=== PATIENT | male | born 1955 | race Hispanic/Latino ===

== ENCOUNTER 2016-05-28 05:53 | Day surgery (SDC) | payer BC ==
--- NOTE | 2016-05-27 14:05 | Short Stay Summary ---
Short Stay Documentation Date of service: 05/28/16 Narrative H&P: Patient has been reassessed/reevaluated/re-examined. H&P has been reviewed. 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 Hypothyroid.) Past Surgical History: Other (nasal polypectomy) Social history: - Allergies and Medications Current Medications: Allergies No Known Allergies Allergy (Unverified 05/20/16 14:57) Home Medications Medication Instructions Recorded Confirmed Last Taken Type Levothyroxine Sodium [Synthroid] 150 mcg PO DAILY 05/20/16 05/20/16 Unknown History - Physical exam General appearance: well-nourished Integumentary: no rash HEENT: Other (nasal polyps visible in both nares. Posterior septal deflection to the right) Lungs: Clear to auscultation Breasts: deferred Heart: Regular rate, No murmurs Gastrointestinal: normoactive bowel sounds Male Genitourinary: deferred Rectal Exam: deferred Extremities: no ischemia, pulses intact, No edema Neurological: Normal gait, Normal speech, Sensation intact - Brief post op/procedure progress note Date of procedure: 05/28/16 Pre-op diagnosis: CRS W/ polyps Post-op diagnosis: same Procedure: Bilateral endoscopic sinus surgery. Septoplasty. Under satisfactory general anesthesia with the face having been prepped and draped in a sterile fashion intranasal examination was performed. Both nares were occluded by multiple, pale, glistening, turgid polyps. In addition the nasal septum was deviated in its mid position to the right and touched the right middle meatus and inferior meatus. Decongestion and vasoconstriction was carried out in the following manner. Alternately one nostril was packed with a Webril strip saturated with Afrin solution. On the opposite side 2% Xylocaine 1-60,000 adrenaline was injected. The injections were placed on the septal jolly beneath the mucoperichondrial and mucoperiosteum and on the lateral nasal jolly just caudal to the insertion of the middle turbinate, the lateral aspect of the middle turbinate, and the superior aspect of the inferior turbinate. A total of 4 mL was utilized. A full 5 minutes was allowed to elapse prior to surgery. Using the 0 endoscope the left nare was visualized initially and the Medtronic microdebrider was used to resect the polyps in the left nostril which filled the nostril and projected into the middle meatus. The polyps were quite voluminous in amount. A similar procedure was carried out on the right side. In order to gain better visualization the right septal deflection was resected in the following manner. An incision through the mucoperichondrium was performed caudal to the major site of deflection. A [place] elevator was used to elevate the mucoperichondrial and mucoperiosteum from the site of the septal deflection. The bony and cartilaginous spurs were then resected with straight Tony forceps and [place] forceps. These maneuvers achieved straightening of the cartilage. Again using the Medtronic microdebrider the polyps in the right middle meatus were then tracked into the anterior ethmoid and posterior ethmoid labyrinths. The polyps were massive in amount. An antrum punch was used to resect the agger nasi cells and additional polyps were removed from this site. An identical procedure with identical findings was carried out on the left side. The nasofrontal areas thankfully were free of polyps. Alternately each nostril was inspected using the 0 and 30 nasal endoscopes and additional polyps were resected using the microdebrider. Polyps in the anterior ethmoid labyrinths bilaterally were removed with suction Alex- [place]akes[place] forceps. Ultimately a satisfactory exenteration was carried out. Bleeding was brisk throughout the procedure. Estimated blood loss was 300 mL. The operation was then concluded. Intranasal dressings of Adaptic gauze impregnated with bacitracin solution were placed in both nostrils. An external tape splint was applied. The patient was taken to the recovery room having tolerated the procedure well. Postoperatively he had vision in both eyes. Anesthesia: GETA Findings: Multiple allergic polyps Surgeon: YESSY CORDERO Estimated blood loss: other (300 mL) Pathology: list (nasal polyps. Cartilage and bony spurs) Specimen disposition: to lab Condition: stable - Hospital course Hospital course: Vital signs stable and normal. Vision both eyes. No bleeding.1025. 05/28/16 - Disposition Condition at discharge: Good
--- NOTE | 2016-05-28 06:53 | Anesthesia Consultation ---
Anesthesia Consult and Med Hx Date of service: 05/28/16 - Airway Anesthetic Teeth Evaluation: Good ROM Head & Neck: Adequate Mental/Hyoid Distance: Adequate Mallampati Class: Class II Intubation Access Assessment: Probably Good - Pulmonary Exam CTA: Yes - Cardiac Exam Cardiac Exam: RRR - Pre-Operative Health Status ASA Pre-Surgery Classification: ASA2 Proposed Anesthetic Plan: General - Pulmonary Hx Smoking: Yes (past hx) - Central Nervous System Hx Psychiatric Problems: No - Endocrine Hx Hypothyroidism: Yes (synthroid) - Other Systems Hx Alcohol Use: Yes (occas) Hx Cancer: Yes (Parotid CA 1994- Surgery and radiation)
--- NOTE | 2016-05-28 06:53 | Anesthesia Day of Surgery ---
Anesthesia Day of Surgery - Day of Surgery Patient Examined: Yes Patient H&P Reviewed: Yes Patient is NPO: Yes
[2016-05-28] MEDS ORDERED: NORCO 5/325 PO PRN (06:54)
[2016-05-28] MEDS ORDERED: ZOFRAN IV PRN (06:54)
[2016-05-28] MEDS ORDERED: PEPCID PO NR (07:00)
[2016-05-28] MEDS ORDERED: NACL 0.9% 1000 ML 1,000 ML IV SCH (07:00)
[2016-05-28] MEDS: VERSED IV NR ×2 (07:17→08:00)
[2016-05-28] MEDS ORDERED: XYLOCAINE MPF 2% ONE (07:20)
[2016-05-28] MEDS ORDERED: SUBLIMAZE ONE (07:20)
[2016-05-28] MEDS ORDERED: DIPRIVAN 10 MG/ML IV ONE (07:20)
[2016-05-28] MEDS ORDERED: AFRIN NS ONE (09:15)
[2016-05-28] MEDS ORDERED: BACITRACIN ZINC OINT TP ONE (09:16)
[2016-05-28] MEDS ORDERED: ADRENALIN IV ONE (09:16)
[2016-05-28] MEDS ORDERED: XYLOCAINE 2% INFILTRATI ONE (09:19)
[2016-05-28] MEDS ORDERED: NACL 0.9% 500 ML IRRIGATION ONE (09:20)
[2016-05-28] MEDS ORDERED: NACL 0.9% IR ONE (09:20)
[2016-05-28] MEDS ORDERED: ZEMURON IV ONE (09:26)
[2016-05-28] MEDS ORDERED: ARTIFICIAL TEARS OPHTH OINT ONE (09:29)
[2016-05-28] MEDS ORDERED: DILAUDID ONE (09:40)
[2016-05-28] MEDS ORDERED: NORMODYNE IV ONE (09:55)
[2016-05-28] MEDS ORDERED: ZOFRAN ONE (10:01)
[2016-05-28] MEDS ORDERED: DECADRON ONE (10:01)
[2016-05-28] MEDS ORDERED: BLOXIVERZ ONE (10:08)
[2016-05-28] MEDS ORDERED: ROBINUL ONE (10:08)
[2016-05-28] MEDS ORDERED: MORPHINE PO PRN (10:34)
[2016-05-28] MEDS ORDERED: TYLENOL PO PRN (10:34)
[2016-05-28] MEDS: DILAUDID IV PRN ×2 (10:40→10:50)
[2016-05-28] MEDS ORDERED: D5LR 1,000 ML IV SCH (11:00)
--- NOTE | 2016-05-28 12:31 | Post Anesthesia Evaluation ---
- Post Anesthesia Evaluation Patient Participated: Yes Airway Patent: Yes Stable Respiratory Function: Yes Nausea/Vomiting: No Temp > 96.8F: Yes Pain Manageable: Yes Adequeate Hydration: Yes Anesthesia Complications: No
[2016-05-28 13:57] VITALS: BP 160/89
== END 2016-05-28 12:40 | disposition home or self-care (01) ==
LOC: OR 05:53
PROVIDERS: ATTEND Otolaryngology
DX: J32.9 Chronic sinusitis, unspecified (principal); J33.9 Nasal polyp, unspecified; Z87.891 Personal history of nicotine dependence; E03.9 Hypothyroidism, unspecified; Z86.79 Personal history of other diseases of the circulatory system; Z85.858 Personal history of malignant neoplasm of other endocrine glands
CPT/HCPCS: 30520; 31237; 88305; J0171; J1100; J1170; J2250; J2405; J2704; J2710; J3010; J7030; J7040; 88311